=== PATIENT | female | born 1995 | race Caucasian/White ===

== ENCOUNTER 2016-08-23 18:02 | Inpatient (IN) ==
--- NOTE | 2016-08-23 15:53 | OB/GYN History & Physical ---
Date of Encounter: 08/23/16 Time of Encounter: 15:50 Assessment and Plan (1) 37 weeks gestation of Current visit: Yes Status: Acute NST /uterine monitoring Serial cervical exams IV fluid hydration IV nubain if reactive NST Consider oral or sq terbutaline if maternal tachycardia resolves Urinalysis POC per consult with Dr Sylvester (2) Uterine contractions during Current visit: Yes Status: Acute NST /uterine monitoring Serial cervical exams IV fluid hydration IV nubain if reactive NST Consider oral or sq terbutaline if maternal tachycardia resolves Urinalysis POC per consult with Dr Sylvester History of Present Illness Chief complaint: Contractions HPI: Ms. Cornejo is a 20 year old female at 37 weeks and 3 days that arrives to labor and delivery with c/o contractions since 0400. She states she was in the office this am for an NST and her contractions were tolerable. She states she then had lunch and since her contractions have increased in intensity and she is rating them a 6/10. She is GBS negative, O+, and varicella non-immune. All other serology was normal. Past Med Surg Social Fam HX - Past Medical History Medical history: no medical history Psychiatric history: no psych history - Social History Smoking Status: Never smoker Smokeless Tobacco Status: No Alcohol use: none Drug use: none - Family History Mother Adopted: No Living Status: Still Living Hx Family GI Disorders: Yes (colitis) Obstetrical History - Pregnancies : 1 Para: 0 Term: 0 : 0 Ab's: 0 Livin Medications and Allergies No Known Home Drugs 08/23/16 [History] Allergies No Known Allergies Allergy (Verified 08/23/16 14:39) Review of System OB All systems PM: reviewed and no additional remarkable complaints except as stated Exam - Constitutional Constitutional: well developed, well nourished, no acute distress, average body habitus - HEENT HEENT: Normocephaly, Mucus Membranes Moist - Neck Neck exam: normal inspection - Lungs Respiratory exam: CTAB - Cardiovascular Cardiovascular exam: RRR, +S1, +S2 - Breasts Breast: bilateral: normal - Abdomen Abdomen: Present: bowel sounds normal, gravid, non tender - Extremities Extremities exam: normal capillary refill, normal inspection, radial pulses palpable and symetrical Deep Tendon Reflex Grade: 1+ Diminished - Cervix Dilation: 0 (FT per RN) Effacement: 70 (per RN) Station: -2 - Uterus Uterus exam: Present: normal size (FHTs 120 with moderate variability and 15 x 15 accels, 1 variable decel reactive NST. Contractions every 1.5-3.5 minutes 45 seconds in length, mild/moderate to palaption. uterus palpates soft between contractions. ), normal contour Results All other labs normal. - VTE Reasons for not Prescribing Prophylaxis: Treatment not Indicated - Low risk for VTE
[2016-08-23 15:54] LABS: Bilirubin,Urine Negative (Negative); Blood,Urine Negative (Negative); Clarity,Urine Cloudy (Clear); Color,Urine Yellow (Yellow); Glucose,Urine (UA) Normal (Normal); Ketones,Urine Negative (Negative); Leukocyte Esterase,Urine Trace (Negative); Nitrite,Urine Negative (Negative); Protein,Urine Negative (Neg-Trace); Specific Gravity,Urine 1.016 (1.010-1.025); Urobilinogen,Urine Normal (Normal)
[2016-08-23 15:57] LABS: Bacteria,Urine None Seen per hpf (None-Few); Hyaline Casts,Urine None Seen per lpf (None-Few); RBC,Urine 0-3 per hpf (0-3); Squamous Epithelial Cell,Urine Moderate per lpf (None-Few); WBC,Urine 0-3 per hpf (0-3)
[2016-08-23] MEDS: Ringers Solution, Lactated 1,000 ML IVC ONE ×2 (16:20→18:50)
--- NOTE | 2016-08-23 17:52 | OB Labor Progress Note ---
Date of Encounter: 08/23/16 Time of Encounter: 17:50 Labor Progress Note - Subjective Subjective: Patient breathing through contractions in bed. - Vital Signs Vital Signs: VSS - Cervix Cervix: 3-4/90/-1 soft posterior - Heart Tones Heart Tones: 130's moderate variability with no decels and 15x15 accels. - [place]: Contractions every 1.5-3.5 minutes. moderate to palpation - Plan Plan: Admit for labor GBS negative Blood type O+ Patient may have nubain upon request Patient may have epidural upon request Anticipate vaginal delivery POC per consult with Dr Sylvester.
[~2016-08-23 18:02] MED LIST: *HR* Nalbuphine 20 MG/ML AMPUL IVP ONE; *HR* Nalbuphine 20 MG/ML AMPUL IVP PRN; Famotidine 20 MG/2 ML VIAL IVP PRN; Naloxone 0.4 MG/ML INJ IVP PRN; Ondansetron 4 MG/2 ML VIAL IVP PRN
[2016-08-23] MEDS ORDERED: Ringers Solution, Lactated 1,000 ML ONE ×4 (18:30→23:22)
[2016-08-23] MEDS: Acetaminophen 325 MG TABLET PO PRN (18:55)
--- NOTE | 2016-08-23 19:12 | Anesthesia Evaluation PreOp ---
Date of Encounter: 08/23/16 Time of Encounter: 19:10 - Past History Planned Operation: chan Cardiac History: Denies any Significant Hx Pulmonary History: Denies Any Significant HX SOUP PERSON History: Denies Any Significant HX Other Medical History: Denies Any Significant HX, GERD Anesthesia History: No Prior Anesthetic Complications, Past Anesthesia (knee scope), Problems (no prob) : Yes Test: Positive Alcohol Use: none Drug use: none Medications and Allergies No Known Home Drugs 08/23/16 [History] Allergies No Known Allergies Allergy (Verified 08/23/16 14:39) - Meds/Allergy Pre-op Review Medications Reviewed: Yes Allergies Reviewed: Yes Beta Blockers on Current Med List: No Anesthesia Exam see nsg note Height: 5'3" Weight: 85 kg NPO (# of Hours): 5 Pain Scale: 3 Pain Scale Used: Numeric (1 - 10) - HEENT Pupil (Motor): Pupils equal Mallampati: II Teeth: Normal Oral Opening: Greater than 3 - SOUP PERSON LOC: Oriented SOUP PERSON Motor: Normal RUE, Normal LUE, Normal RLE, Normal LLE, Normal Face SOUP PERSON Sensory: Normal: RUE, LUE, RLE, LLE, Face - Cardiac Rhythm: Regular Murmur: None - Pulmonary Breath Sounds: bilateral Clear Respiratory Effort: Symmetrical Anesthesia Assess/Plan ASA Score: 2 Modified [place] Scale for Level of Consciousness: Cooperative, oriented, and tranquil Anesthetic Plan: Regional Autologous Blood: No Monitoring Plan: Standard Monitors Recovery Plan: Other (risks discussed, questions answered, consented)
[2016-08-23 19:56] LABS: Basophils % 0.4 %; Eosinophils # 0.1 K/mcL (0.0-0.6); Eosinophils % 0.4 %; Hematocrit 33.6 % (35.3-44.9); Hemoglobin 11.3 g/dL (11.5-15.4); Immature Granulocytes % 0.4 % (0-4); Immature Platelets 10.1 % (1.1-6.1); Lymphocytes # 2.1 K/mcL (0.6-4.6); Lymphocytes % 18.1 %; Mean Corpuscular HGB Conc 33.6 g/dL (31.6-35.5); Mean Corpuscular Hemoglobin 28.7 pg (28.0-33.3); Mean Corpuscular Volume 85.3 fL (83.0-100.0); Mean Platelet Volume 11.4 fL (9.4-12.4); Monocytes # 0.8 K/mcL (0.0-1.3); Monocytes % 7.2 %; Neutrophils # 8.3 K/mcL (1.6-8.9); Platelet Count 223 K/mcL (140-400); Red Blood Count 3.94 M/mcL (3.82-4.97); Red Cell Distribution Width 12.9 % (11.5-14.5); Segmented Neutrophils % 73.5 %
--- NOTE | 2016-08-23 22:05 | OB Labor Progress Note ---
Date of Encounter: 08/23/16 Time of Encounter: 22:02 Labor Progress Note - Subjective Subjective: Patient breathing through contractions in bed. - Vital Signs Vital Signs: VSS - Cervix Cervix: 4/90/-1 mid-position soft - Heart Tones Heart Tones: 125 moderate variability with 15 x 15 accels no decels - [place]: Contractions every 2-3 minutes 30-45 seconds in length palpate mild/moderate uterus palpates soft between contractions - Interventions Interventions: Cervical exam per CNM Dr Sylvester called to bedside to recheck cervical exam prior to AROM Dr Sylvester AROM for small amount of clear fluid - Plan Plan: Continue routine labor management Patient may have nubain upon request Patient may have epidural upon request Consider internal monitoring if needed for tracing labor adequacy and/or monitoring Consider pitocin IV if not making cervical change Anticipate vaginal delivery GBS negative POC per consult with Dr Sylvester.
[2016-08-23] MEDS ORDERED: Epidural Premix (fent/bupiv) 110 ML EP SCH (23:30)
[2016-08-23] MEDS ORDERED: *HR* FentaNYL (PF) 100 MCG/2 ML VIAL EP ONE (23:30)
[2016-08-23] MEDS ORDERED: *HR* Ropivacaine/PF 0.2% 10 ML AMPUL EP ONE (23:30)
[2016-08-23] MEDS ORDERED: Epidural Premix (fent/bupiv) 110 ML EP ONE ×2 (23:35)
[2016-08-23] MEDS ORDERED: *HR* Ropivacaine/PF 0.2% 10 ML AMPUL ONE (23:35)
[2016-08-23] MEDS ORDERED: *HR* FentaNYL (PF) 100 MCG/2 ML VIAL ONE (23:35)
--- NOTE | 2016-08-24 00:01 | Anesthesia Procedures ---
Date of Encounter: 08/23/16 Time of Encounter: 23:59 Procedures: Anesthesia - Epidural/Spinal Patient examined: Yes OB Eval: Gestational age: 37.3 OB Eval: : 1 OB Eval: Hx Para: 0 OB Eval: Dilated at (cm): 5 OB Eval: Contractions: Non-stressed pattern Consent Obtained: Yes Supplemental Oxygen: None/Room Air Site Prep: Aseptic Technique, Sterile prep and drape, 0.5% Chlorhexidine/Alcohol Patient position: upright Local Anesthetic: Lidocaine 1% Amount of Local Anesthetic used: 3 Touhy Needle Gauge: 18 Touhy Needle Depth (cm): 8 Catheter Depth at Skin (cm): 15 Test Dose (1.5% Lido + Epi): Volume given (mls): 3 Test Dose Result: Negative Loading Dose: Fentanyl (mcg): 100 Loading Dose: Other: ropivicaine 0.2% 10cc Loading Dose Administered: Thru Touhy Needle Infusion Med: 0.125% Bupivacaine w/ 2 mcg/ml Fentanyl Catheter Secured in Place: Tegaderm Interspace Used: L3-L4 Loss of Resistance ([place]ON[place]): Yes Blood: No CSF: No Paresthesia: No Procedure: aseptic tech, tolerated well, VSS, effective Vitals + FHT's: 110/76 77 fht 133
[2016-08-24] MEDS ORDERED: Oxytocin 20 units/ LR 1000 mL 20 UNIT/1,000 ML BAG IVC SCH ×2 (00:14→14:47)
[2016-08-24] MEDS ORDERED: Ringers Solution, Lactated 1,000 ML ONE ×3 (02:11→08:30)
--- NOTE | 2016-08-24 04:48 | OB Labor Progress Note ---
Date of Encounter: 08/24/16 Time of Encounter: 04:30 Labor Progress Note - Subjective Subjective: Patient resting well in bed after epidural placement - Vital Signs Vital Signs: VSS - Cervix Cervix: 5-6/90/-1 anterior soft - Heart Tones Heart Tones: 130s with moderate variability, 15x15 accels, and no decels. - [place]: Contractions palpable as mild every 4 to 6 minutes, not showing up on monitor. - Interventions Interventions: IUPC placed. Patient and fetus tolerated well. - Plan Plan: Continue routine labor management Pitocin currently running 10 mu/min, adjust per policy as needed for adequate contractions Pain well controlled GBS negative Anticipate vaginal delivery POC per consult with Dr Sylvester
[2016-08-24] MEDS ORDERED: Epidural Premix (fent/bupiv) 110 ML EP ONE (06:45)
--- NOTE | 2016-08-24 09:15 | OB Labor Progress Note ---
Date of Encounter: 08/24/16 Time of Encounter: 08:45 Labor Progress Note - Subjective Subjective: Patient resting well with epidural - Vital Signs Vital Signs: VSS - Cervix Cervix: 8/100/0 more cervix remains on right side - Heart Tones Heart Tones: 160's moderate variability no decels - [place]: Contractions every 2-4 minutes 60 seconds in length - Interventions Interventions: Repositioned. - Plan Plan: Continue with routine labor management Pain well controlled with epidural Continue to titrate pitocin as needed for adequate labor Anticipate vaginal delivery POC per consult with Dr William.
[2016-08-24] MEDS ORDERED: Penicillin G Potassium 5,000,000 UNIT in D5% in Water (Mini-Bag+) 100 ML IVPB ONE (10:41)
[2016-08-24] MEDS ORDERED: Acetaminophen 325 MG TABLET PO ONE (10:41)
[2016-08-24] MEDS: Acetaminophen 325 MG TABLET PO PRN (10:54)
--- NOTE | 2016-08-24 11:51 | OB/GYN Procedure Note ---
Delivery - Delivery Date: 08/24/16 Provider: Ricarda Valverde (Dr William at bedside for proctoring) Intrapartum events: febrile- temp >100.3, prolonged labor- > = 20hr Delivery induction: none Delivery augmentation: pitocin Delivery monitor: external FHT, external uterine, internal FHT, internal uterine Anesthesia: epidural Estimated Blood Loss: 200 - Infant (s) Infant A Infant Delivery Date: 08/24/16 Delivery Time: 11:15 Presentation: vertex Position: OA Gender: Male Viability: Viable Weight Gram: 2.38 kg at 1 minute: 1 at 5 mins: 1 at 10 mins: 7 Shoulder Dystocia: not encountered Specimens collected: cord blood Placenta: spontaneous Cord: 3 umbilical vessels - Repair Episiotomy: none Laceration Description: Perineal - 1st Degree, Labial - Complications Delivery complications: none - Disposition Mom disposition: stable in LDR [place] disposition: taken to nursery - Comments Comments: Patient progressed to complete and began coached pushing. Patient pushed quickly to of viable male . No nuchal, no meconium, and no shoulder dystocia. placed on maternal abdomen and cord clamped and cut before 30 seconds of age. Infant taken to prewarmed radiant warmer and resuscitated by nursery team. Apgars 1, 1, and 7 at 1, 5, and 10 minutes respectively. Placenta delivered spontaneously and appears grossly intact with 3 vessel cord. Upon inspection hemostatic superficial laceration noted periurethrally and labially. Labial and 1st degree laceration noted to posterior left perineum; repaired with 3-0 vicryl in the usual fashion with Dr William assisting. Uterus firm, midline, and 1 fingerbreadth below U with light bleeding. EBL 200. Dr William present during delivery for proctoring. Mother stable in recovery. in special care nursery on CPAP.
--- NOTE | 2016-08-24 12:20 | Event Note ---
Date of Encounter: 08/24/16 Time of Encounter: 10:40 Notified of tachycardia of 170's with moderate variability and maternal temperature of 100.6. Orders given to start PCN and tylenol. Patient is complete; set up to begin pushing.
[2016-08-24] MEDS ORDERED: Measles/Mumps/Rubella Vacc 0.5 ML VIAL SQ PRN (14:47)
[2016-08-24] MEDS ORDERED: Acetaminophen 325 MG TABLET PO PRN ×2 (14:47)
[2016-08-24] MEDS ORDERED: Oxytocin 20 units/ LR 1000 mL 20 UNIT/1,000 ML BAG IVC ONE (14:47)
[2016-08-24] MEDS ORDERED: Benzocaine/Menthol 56 GM AEROSOL SPRAY TP PRN (14:47)
[2016-08-25] MEDS: Prenatal Vit/FA 1 EACH TABLET PO SCH (08:15)
[2016-08-25] MEDS: Ibuprofen 600 MG TABLET PO PRN ×2 (08:21→22:31)
--- NOTE | 2016-08-25 08:46 | OB/GYN Progress Note ---
Date of Encounter: 08/25/16 Time of Encounter: 08:31 - Assessment and Plan (1) Vaginal delivery Current Visit: Yes Status: Acute Continue routine management Discharge home tomorrow (2) 37 weeks gestation of Current Visit: Yes Status: Resolved NST /uterine monitoring Serial cervical exams IV fluid hydration IV nubain if reactive NST Consider oral or sq terbutaline if maternal tachycardia resolves Urinalysis POC per consult with Dr Sylvester (3) Uterine contractions during Current Visit: Yes Status: Resolved NST /uterine monitoring Serial cervical exams IV fluid hydration IV nubain if reactive NST Consider oral or sq terbutaline if maternal tachycardia resolves Urinalysis POC per consult with Dr Sylvester Subjective - Subjective Principal diagnosis: Spontaneous labor Interval history: Patient doing well post delivery day 1 Pain is well controlled Bleeding is light; no clots No difficulty urinating; passing flatus Patient is bottle feeding. Discharge home tomorrow Patient reports: appetite normal, voiding normally, pain well controlled, ambulating normally : doing well, in NICU (IV antibiotics for 24 hours) Objective - Latest Vital Signs Latest vital signs: Vital Signs Temp Pulse Resp BP Pulse Ox 08/25/16 07:40 98.4 F 82 12 92/61 98 08/25/16 05:51 98.2 F 86 16 103/64 96 08/24/16 19:35 98.6 F 100 16 112/77 97 08/24/16 17:55 98.3 F 88 16 111/74 97 08/24/16 16:55 98.6 F 95 16 117/74 97 08/24/16 15:55 98.3 F 88 16 112/74 95 Intake and Output 08/24/16 08/25/16 08/25/16 23:59 07:59 15:59 Intake Total 300 / 300 Output Total 1000 / 1000 200 / 200 Balance -1000 / -1000 100 / 100 Intake: Oral 300 / 300 Output: Urine 1000 / 1000 200 / 200 Other: # Urine Diapers 1 Weight 82.44 kg Patient Weight 08/25/16 23:59 Weight 82.44 kg - Exam Lungs: bilateral: normal Chest: Normal S1, Normal S2 Extremities: Present: normal Abdomen: Present: normal appearance, soft. Absent: gravid Uterus: Present: normal, firm Uterus Position: At Umbilicus, Midline
[2016-08-26 07:36] VITALS: BP 105/68
[2016-08-26] MEDS: Ibuprofen 600 MG TABLET PO PRN (11:46)
[2016-08-26] MEDS: Prenatal Vit/FA 1 EACH TABLET PO SCH (11:47)
--- NOTE | 2016-08-26 14:14 | Discharge Summary ---
Date of Encounter: 08/26/16 Time of Encounter: 14:14 - Discharge Diagnosis (1) Vaginal delivery Priority: Primary Status: Acute Comments: Pt meeting milestones. - Discharge Medications Prescriptions: Ibuprofen [Motrin] 600 mg PO Q6HR PRN #60 tablet PRN Reason: Cramping Docusate [Colace] 100 mg PO BID #60 capsule Home Medications: Docusate [Colace] 100 mg PO BID #60 capsule 08/26/16 [Rx] Ibuprofen [Motrin] 600 mg PO Q6HR PRN #60 tablet 08/26/16 [Rx] Allergies/Adverse Reactions: Allergies No Known Allergies Allergy (Verified 08/23/16 14:39) Data Procedures and tests throughout hospitalization: Laboratory Tests 08/23/16 08/23/16 15:16 19:38 WBC 11.3 H RBC 3.94 Hgb 11.3 L Hct 33.6 L MCV 85.3 MCH 28.7 MCHC 33.6 RDW 12.9 Plt Count 223 MPV 11.4 Immature Gran % 0.4 Seg Neutrophils % 73.5 Lymphocytes % 18.1 Monocytes % 7.2 Eosinophils % 0.4 Basophils % 0.4 Neutrophils # 8.3 Lymphocytes # 2.1 Monocytes # 0.8 Eosinophils # 0.1 Basophils # 0.0 Immature Plt Fraction 10.1 H Urine Color Yellow Urine Clarity Cloudy A Urine pH 6.0 Ur Specific [place] 1.016 Urine Protein Negative Urine Glucose (UA) Normal Urine Ketones Negative Urine Blood Negative Urine Nitrite Negative Urine Bilirubin Negative Urine Urobilinogen Normal Ur Leukocyte Esterase Trace H Urine Microscopic RBC 0-3 Urine Microscopic WBC 0-3 Ur Squamous Epith Cells Moderate H Urine Bacteria None Seen Hyaline Casts None Seen Ur Culture Indicated? YES A Date of admission: 08/23/16 18:03 Primary care physician: Jany Huerta DO Consults: 08/24/16 14:47 Consult to [employer] [CONS] Routine Comment: Vaginal delivery, consult needed Discharging clinician: Trina Narayanan Anticipated date of discharge: 08/26/16 - Patient Status Disposition: Home, Self-Care Condition: Good Functional capacity at discharge: independent ambulation Overall status at discharge: patient is progressing back to baseline - Discharge Instructions Follow Up With: Jany Huerta DO [Primary Care Provider] - Ricarda Valverde CNM [Advanced Practice Nurse] - - Diet and Activity Activity: increase activity as tolerated Diet: regular diet Hospital Course Reason for admission: active labor Episiotomy: none Laceration: 1st degree Other procedures: none complications: none Discharge diagnosis: IUP at term delivered baby: male Hospital course: - Delivery Date: 08/24/16 Provider: Ricarda Valverde (Dr William at bedside for proctoring) Intrapartum events: febrile- temp >100.3, prolonged labor- > = 20hr Delivery induction: none Delivery augmentation: pitocin Delivery monitor: external FHT, external uterine, internal FHT, internal uterine Anesthesia: epidural Estimated Blood Loss: 200 - Infant (s) Infant A Delivery Date: 08/24/16 Infant Delivery Time: 11:15 Presentation: vertex Position: OA Gender: Male Viability: Viable Weight Gram: 2.38 kg at 1 minute: 1 at 5 mins: 1 at 10 mins: 7 Shoulder Dystocia: not encountered Specimens collected: cord blood Placenta: spontaneous Cord: 3 umbilical vessels - Repair Episiotomy: none Laceration Description: Perineal - 1st Degree, Labial - Complications Delivery complications: resuscitation - Disposition Mom disposition: home PPD#2 disposition: Obs in SCN Time Attestation: Total time spent providing and/or coordinating discharge services: Time Spent: Less than 30 minutes Exam - Constitutional Vitals: Temp Pulse Resp BP Pulse Ox 97.9 F 77 16 105/68 98 08/26/16 07:36 08/26/16 07:36 08/26/16 11:27 08/26/16 07:36 08/25/16 22:30 General appearance IM: A&O X 3, pleasant, no acute distress - Respiratory Respiratory exam: Present: CTAB - Cardiovascular Cardiovascular exam IM: Present: RRR, +S1, +S2 - GI/Abdominal GI/Abdominal exam IM: soft - Rectal Rectal exam: deferred - Uterine Tone: Firm Uterus Position: 2 Fingers Below Umbilicus - Extremities Exam Extremities exam IM: Present: normal inspection - Neurological Exam Neurological exam: normal gait, oriented X3 - Psychiatric Additional comments: reports good mood
== END 2016-08-26 15:56 | disposition home or self-care (01) | DRG 775 ==
LOC: 1NENULAB → 1NENUOBS 08-24 14:41
PROVIDERS: ADMIT Obstetrics & Gynecology; ATTEND Obstetrics & Gynecology